=== PATIENT | female | born 1990 | race African-American/Black ===

== ENCOUNTER 2022-03-27 05:28 | Emergency (ER) | payer MEDICAID ==
[~2022-03-27] VITALS: Ht 160 cm; Wt 59.0 kg
[2022-03-27] MEDS ORDERED: AMOX1TAB16 PO (06:32)
[2022-03-27] MEDS ORDERED: T3 PO (06:32)
[2022-03-27] MEDS ORDERED: IBUP-2030 PO (06:32)
[2022-03-27] MEDS ORDERED: IBUPROFEN 800MG TABLET PO ONE (07:15)
[2022-03-27 08:31] VITALS: BP 126/82
== END 2022-03-27 08:32 | disposition home or self-care (01) ==
LOC: ER 05:28
DX: K02.9 Dental caries, unspecified (principal); Z86.39 Personal history of other endocrine, nutritional and metabolic disease
CPT/HCPCS: 99282